=== PATIENT | male | born 1995 | race Asian ===

== ENCOUNTER 2023-05-05 22:36 | Emergency (ER) | payer OTHER, SELFPAY ==
[2023-05-05 22:47] VITALS: BP 129/77; PULSE 63; RESP 14; TEMP 36.7; O2SAT 100
[2023-05-05 23:03] VITALS: O2SAT 99
[2023-05-05] MEDS: methylPREDNISolone SOD SUCC 125 MG VIAL IV PUSH (23:59)
[2023-05-05] MEDS: FAMOTIDINE 20 MG/2 ML VIAL IV PUSH (23:59)
[2023-05-06] MEDS: diphenhydrAMINE HCl INJ 50 MG/ML VIAL 25 MG IV PUSH
--- NOTE | 2023-05-06 00:03 | ED.GENADULT ---
HPI - General Adult General Chief complaint: Allergic Reaction Stated complaint: allergic reaction Time Seen by Provider: 05/05/23 23:21 History of Present Illness HPI narrative: patient is a 27-year-old gentleman who presents emergency department with chief complaint of allergic reaction. Patient reports that he has a prior peanut allergy and eats some evidence this evening that he did not realize had peanuts in the the patient states he took a handful of the small wounds no CS strain sensation in his mouth she did take a 2nd larger bite of the the patient then stated that he felt as though his throat was starting to swell took 50 mg of Benadryl the patient reports he feels a little better now denies shortness of breath denies wheezing reports that he is able to swallow his own secretions Related Data Allergies Allergy/AdvReac Type Severity Reaction Status Date / Time peanut Allergy Unknown Unknown Verified 05/05/23 23:03 cats dogs peanut butter Allergy Mild Unknown Uncoded 05/05/23 23:03 Review of Systems Review of Systems: A 10 system review of systems was completed on the patient and is negative except for what is stated in the HPI. Nursing and ancillary documentation was reviewed. Exam Narrative: GENERAL: Well-appearing, well-nourished, and in no acute distress. HEAD: Normocephalic, atraumatic. EYES: PERRLA and EOMI. ENT: Nares clear, no rhinorrhea or epistaxis. Mucous membranes moist. NECK: Supple. CHEST: Clear to auscultation. No respiratory distress. HEART: Regular rate and rhythm. No murmur heard. Normal peripheral pulses. ABDOMEN: Soft, nontender, nondistended, normal active bowel sounds. EXTREMITIES: Normal range of motion. No edema. SKIN: Warm, dry, no rash. NEURO: No focal deficits. Alert and oriented x3. PSYCH: Normal mood and affect. Course Vital Signs Vital signs: Vital Signs Temperature 36.7 C 05/05/23 22:47 Pulse Rate 63 05/05/23 22:47 Respiratory Rate 14 05/05/23 22:47 Blood Pressure 129/77 05/05/23 22:47 Pulse Oximetry 100 05/05/23 22:47 Oxygen Delivery Room Air 05/05/23 22:47 Temperature 36.7 C 05/05/23 22:47 Pulse Rate 63 05/05/23 22:47 Respiratory Rate 14 05/05/23 22:47 Blood Pressure 129/77 05/05/23 22:47 Pulse Oximetry 99 05/05/23 23:03 Oxygen Delivery Room Air 05/05/23 23:03 Medical Decision Making MDM Narrative Medical decision making narrative: differential diagnosis includes allergic reaction, anaphylaxis, the patient started taking Benadryl and was starting to be improving upon arrival to the emergency department patient given Solu-Medrol Pepcid and a small dose of IV Benadryl. the patient has been observed in the emergency department is feeling much better at this time we discharged home on a course of prednisone Vital Signs Vital Signs: Vital Signs Temperature 36.7 C 05/05/23 22:47 Pulse Rate 63 05/05/23 22:47 Respiratory Rate 14 05/05/23 22:47 Blood Pressure 129/77 05/05/23 22:47 Pulse Oximetry 100 05/05/23 22:47 Oxygen Delivery Room Air 05/05/23 22:47 Temperature 36.7 C 05/05/23 22:47 Pulse Rate 63 05/05/23 22:47 Respiratory Rate 14 05/05/23 22:47 Blood Pressure 129/77 05/05/23 22:47 Pulse Oximetry 99 05/05/23 23:03 Oxygen Delivery Room Air 05/05/23 23:03 Discharge Plan Discharge Clinical Impression: Allergic reaction Qualifiers: Encounter type: initial encounter Qualified Code(s): T78.40XA - Allergy, unspecified, initial encounter Patient Disposition: Home, Self-Care Condition: Stable Instructions: Antibiotic Form, Food Allergy (ED), General Allergic Reaction (ED) Prescriptions: New prednisone 20 mg tablet 40 mg PO DAILY 5 Days Qty: 10 0RF albuterol sulfate 90 mcg/actuation HFA aerosol inhaler 2 puff inhalation QID PRN (Reason: shortness of breath or wheezing) Qty: 8.5 0RF Follow-up/Referrals: Charli Qureshi MD [Physician] -
[2023-05-06 00:25] VITALS: BP 109/66; PULSE 61; RESP 16; O2SAT 100
== END 2023-05-06 00:53 | disposition home or self-care (01) ==
PROVIDERS: Emergency Provider Emergency Medicine
DX: R22.1 Localized swelling, mass and lump, neck (principal); T78.1XXA Other adverse food reactions, not elsewhere classified, initial encounter
CPT/HCPCS: 96374; 96375; 99284; J1200; J2930